=== PATIENT | female | born 1945 | race Caucasian/White ===

== ENCOUNTER → 2016-08-18 | Outpatient (CLI) | payer MEDICARE | LOC: EMI 15:44 | DX: M25.562 Pain in left knee (principal); M22.42 Chondromalacia patellae, left knee; M71.562 Other bursitis, not elsewhere classified, left knee | CPT/HCPCS: 73721 ==

== ENCOUNTER → 2016-08-29 | Outpatient (CLI) | payer MEDICARE ==
[2016-08-29 10:00] LABS: HEMOGLOBIN 14.4 gm/dl (12.3-15.3); RED BLOOD COUNT 4.64 M/UL (4.00-5.10); WHITE BLOOD COUNT 4.8 K/UL (4.5-11.0)
[2016-08-29 10:22] LABS: BUN/CREATININE RATIO 21 (0-10)
== END ==
LOC: LAB 09:04
PROVIDERS: Orthopaedic Surgery
DX: Z01.812 Encounter for preprocedural laboratory examination (principal)
CPT/HCPCS: 36415; 80053; 85025

== ENCOUNTER → 2020-04-24 | Outpatient (CLI) | payer MEDICARE ==
[~2020-04-24] VITALS: Ht 152.4 cm; Wt 56.7 kg
== END ==
LOC: OPSV 11:45
DX: M81.0 Age-related osteoporosis without current pathological fracture (principal); K90.49 Malabsorption due to intolerance, not elsewhere classified
CPT/HCPCS: 96365; J3489

== ENCOUNTER → 2021-05-14 | Outpatient (CLI) | payer MEDICARE ==
[~2021-05-14] VITALS: Ht 152.4 cm; Wt 59.0 kg
== END ==
LOC: OPSV 04-04 13:00
DX: M81.0 Age-related osteoporosis without current pathological fracture (principal)
CPT/HCPCS: 96365; J3489